=== PATIENT | female | born 1970 | race Caucasian/White ===

== ENCOUNTER 2021-09-09 10:34 | Emergency (ER) | payer BC, SELFPAY ==
[2021-09-09 10:36] VITALS: BP 143/88; PULSE 78; RESP 16; TEMP 36.9; O2SAT 98; BMI 20.1
--- NOTE | 2021-09-09 11:52 | ED_ITS ---
HPI - Ear Problem General Chief complaint: Ear Problems Stated complaint: lt ear pain Time Seen by Provider: 09/09/21 11:44 Source: patient Mode of arrival: ambulatory Limitations: no limitations History of Present Illness HPI Narrative: 51-year-old female, otherwise healthy was presenting with left- sided ear pain for the last few weeks. She reports her used an [id number] earwax removal kit this morning with a fluid flush, and a lot of ear wax was removed. She had significant pain with this procedure at home and is afraid her may have punctured her eardrum. She has no drainage or hearing loss. No fever or chills. No upper respiratory infection signs or symptoms. MD Complaint: ear pain Location: left ear Duration: intermittent Severity: moderate Relieving factors: nothing Exacerbating factors: palpation Context: trauma Discharge from ear: no Associated symptoms ear: external ear tenderness Treatment prior to arrival: attempt at ear wax removal Related Data Previous Rx's Medication Instructions Recorded cefdinir 300 mg capsule 300 mg PO BID #14 cap 09/09/21 Allergies Allergy/AdvReac Type Severity Reaction Status Date / Time Penicillins [PCN] AdvReac Rash Verified 09/09/21 10:38 Review of Systems Review of Systems: Constitutional: No Fever, No Chills ENT/Mouth: No sore throat, No Rhinorrhea, No Swallowing Difficulty, +ear pain, No hearing loss Eyes: No Eye Pain, No Swelling, No Redness Cardiovascular: No Chest Pain, No SOB Respiratory: No Cough, No Sputum, No Wheezing, No dyspnea Gastrointestinal: No Nausea, No Vomiting Skin: No Skin Lesions, No rash Neuro: No Dizziness, No Headache Heme/Lymph:No Lymphadenopathy PMFSH Past Medical History Attestation statement: The following information was validated with the patient. Medical History No known health problems Social History Social History Advance Directives: No Physical Exam Vital Signs: Vital Signs: Last Vital Signs Temp 98.4 F 09/09/21 10:36 Pulse 78 09/09/21 10:36 Resp 16 09/09/21 10:36 BP 143/88 H 09/09/21 10:36 Pulse Ox 98 09/09/21 10:36 Body Mass Index 20.1 Appearance: Alert. Oriented X3. No acute distress. HEENT: normal inspection. right ear normal EAC and TM. left ear with some tenderness when pulling at pinna, no EAC swelling but mild erythema, left TM with diffuse redness with effusion present, small amount of blood centrally on TM but no perforation. normal pharynx. CVS: Normal heart rate and rhythm. Pulses normal. Respiratory: No respiratory distress. Skin: Skin warm and dry. Normal skin color. Normal skin turgor. No rashes. Extremities: atraumatic, no edema Neuro: Oriented X 3. No motor deficit. No sensory deficit. Course Course Course Narrative: 51-year-old female presenting with left ear pain after a ttempting erect removal at home. She reports a significant amount of ear wax has been removed but she has residual pain after it was irrigated. She was having pain prior to the post procedure at home as well. Her exam is consistent with acute otitis media with erythema and bulging of the tympanic membrane. There is no perforation. Will treat with oral antibiotics. She is stable for discharge home. Discharge Plan Discharge Clinical Impression: Otitis media Qualifiers: Otitis media type: serous Chronicity: acute Laterality: left Recurrence: non- recurrent Qualified Code(s): H65.02 - Acute serous otitis media, left ear Patient Disposition: Home, Self-Care Instructions: Ear Infection (ED) Additional Instructions: Your exam today showed redness and irritation of the ear drum as well as a small amount of blood, this could be due to irritation versus infection. Your ear drum was intact. Take the prescribed antibiotics for possible ear infection. Avoid Q-tips or instrumentation in your ear until the pain is completely resolved Follow-up with your doctor as needed Prescriptions: New cefdinir 300 mg capsule 300 mg PO BID Qty: 14 RF: 0
== END 2021-09-09 12:06 | disposition home or self-care (01) ==
PROVIDERS: Emergency Provider Emergency Medicine; PCP Internal Medicine
DX: H65.02 Acute serous otitis media, left ear (principal); Z79.899 Other long term (current) drug therapy
CPT/HCPCS: 99283